=== PATIENT | male | born 1940 | race Caucasian/White ===

== ENCOUNTER 2018-05-01 22:40 | Inpatient (IN) | payer MEDICARE, OTHER ==
[2018-05-01 23:35] LABS: ADD MAN DIFF? NO
[2018-05-01 23:38] LABS: BASOPHIL # 0.1 10^3/ul (0.0-0.1); BASOPHILS % 0.7 % (0.0-2.0); EOSINOPHILS # 0.3 10^3/ul (0.0-0.5); EOSINOPHILS % 3.5 % (0.0-7.0); HEMATOCRIT 38.8 % (42.0-52.0); HEMOGLOBIN 12.3 g/dl (14.0-18.0); LYMPHOCYTES # 1.4 10^3/ul (0.8-2.9); LYMPHOCYTES % 14.7 % (15.0-51.0); MEAN CORPUSCULAR HEMOGLOBIN 28.1 pg (29.0-33.0); MEAN CORPUSCULAR HGB CONC 31.7 g/dl (32.0-37.0); MEAN CORPUSCULAR VOLUME 88.6 fl (82.0-101.0); MEAN PLATELET VOLUME 9.1 fl (7.4-10.4); MONOCYTE # 0.7 10^3/ul (0.3-0.9); MONOCYTES % 7.7 % (0.0-11.0); NEUTROPHIL # 6.9 10^3/ul (1.6-7.5); NEUTROPHILS % 71.9 % (39.0-77.0); PLATELET COUNT 558 10^3/UL (140-415); RED BLOOD COUNT 4.38 10^6/ul (4.70-6.10); RED CELL DISTRIBUTION WIDTH 17.2 % (11.5-14.5)
[2018-05-01 23:38] LABS: WHITE BLOOD COUNT 9.6 10^3/ul (4.8-10.8)
[2018-05-01 23:55] LABS: ANION GAP 5 (5-13); BLOOD UREA NITROGEN 23 mg/dl (7-20); CALCIUM 8.7 mg/dl (8.4-10.2); CARBON DIOXIDE 31 mmol/L (21-31); CHLORIDE 104 mmol/L (97-110); CREATININE 0.68 mg/dl (0.61-1.24); GLUCOSE 99 mg/dl (70-220); POTASSIUM 4.5 mmol/L (3.5-5.1); SODIUM 140 mmol/L (135-144)
[2018-05-02 00:07] LABS: B-TYPE NATRIURETIC PEPTIDE 1310 PG/ML (0-450); TROPONIN-I < 0.012 ng/ml (0.000-0.120)
[2018-05-02 00:33] LABS: PROTIME > 100.0 Sec (11.9-14.9); PT RATIO 7.8
[2018-05-02 00:38] LABS: PARTIAL THROMBOPLASTIN TIME 172.2 Sec (23.0-35.0)
[2018-05-02 00:39] LABS: INR > 10.00
[2018-05-02] MEDS: LEVALBUTEROL (NEB) 1.25 MG/0.5 ML AMP HHN (00:59)
[2018-05-02] MEDS: IPRATROPIUM (NEB) 0.5 MG/2.5 ML AMP HHN (00:59)
[2018-05-02] MEDS ORDERED: BISACODYL (EC) 5 MG TAB PO (03:00)
[2018-05-02] MEDS ORDERED: ACETAMINOPHEN 325 MG TAB PO (03:00)
[2018-05-02] MEDS ORDERED: DOCUSATE SODIUM 100 MG CAP PO (03:00)
[2018-05-02] MEDS ORDERED: ONDANSETRON 4 MG INJ IV (03:00)
[2018-05-02] MEDS ORDERED: NACL 0.9% 3 ML SYG IV (03:00)
[2018-05-02] MEDS: CEFEPIME 1GM/50 ML (PMX) 50 ML IVPB (03:02)
[2018-05-02 04:32] LABS: ADD MAN DIFF? NO
[2018-05-02 04:42] LABS: BASOPHIL # 0.1 10^3/ul (0.0-0.1); BASOPHILS % 0.8 % (0.0-2.0); EOSINOPHILS # 0.3 10^3/ul (0.0-0.5); EOSINOPHILS % 3.9 % (0.0-7.0); LYMPHOCYTES # 1.3 10^3/ul (0.8-2.9); LYMPHOCYTES % 16.6 % (15.0-51.0); MEAN CORPUSCULAR HEMOGLOBIN 28.3 pg (29.0-33.0); MEAN CORPUSCULAR HGB CONC 32.4 g/dl (32.0-37.0); MEAN CORPUSCULAR VOLUME 87.3 fl (82.0-101.0); MEAN PLATELET VOLUME 9.1 fl (7.4-10.4); MONOCYTE # 0.6 10^3/ul (0.3-0.9); MONOCYTES % 7.9 % (0.0-11.0); NEUTROPHIL # 5.5 10^3/ul (1.6-7.5); NEUTROPHILS % 69.3 % (39.0-77.0); PLATELET COUNT 520 10^3/UL (140-415); RED BLOOD COUNT 4.24 10^6/ul (4.70-6.10)
[2018-05-02] MEDS: PHYTONADIONE 10 MG/ML INJ IV (04:49)
[2018-05-02] MEDS: FUROSEMIDE 20 MG INJ IV (04:50)
[2018-05-02] MEDS: VANCOMYCIN 1 GM (PMX) 250 ML IVPB (04:50)
[2018-05-02 04:51] LABS: HEMOGLOBIN A1C 6.5 % (0-5.9)
[2018-05-02 04:53] LABS: ALANINE AMINOTRANSFERASE 7 IU/L (13-69); ALBUMIN 2.7 g/dl (3.3-4.9); ALBUMIN/GLOBULIN RATIO 0.61; ALKALINE PHOSPHATASE 78 IU/L (42-121); ANION GAP -1 (5-13); ASPARTATE AMINO TRANSFERASE 24 IU/L (15-46); BILIRUBIN,INDIRECT 0.1 mg/dl (0-1.1); BILIRUBIN,TOTAL 0.1 mg/dl (0.2-1.3); BLOOD UREA NITROGEN 20 mg/dl (7-20); CALCIUM 8.3 mg/dl (8.4-10.2); CARBON DIOXIDE 31 mmol/L (21-31); CHLORIDE 111 mmol/L (97-110); CREATININE 0.63 mg/dl (0.61-1.24); GLUCOSE 121 mg/dl (70-220); POTASSIUM 4.4 mmol/L (3.5-5.1); SODIUM 141 mmol/L (135-144); TOTAL PROTEIN 7.1 g/dl (6.1-8.1)
[2018-05-02] MEDS: METOCLOPRAMIDE 10 MG TAB PO (05:30)
[2018-05-02] MEDS ORDERED: LEVALBUTEROL (NEB) 1.25 MG/0.5 ML AMP HHN (05:30)
[2018-05-02] MEDS ORDERED: PENDING SANTYL ORDER FOR WOUND CARE XX (10:30)
[2018-05-02] MEDS: BISACODYL (EC) 5 MG TAB PO (14:07)
[2018-05-02] MEDS: METOPROLOL 50 MG TAB PO ×2 (14:07→20:59)
[2018-05-02] MEDS: FINASTERIDE 5 MG TAB PO (14:07)
[2018-05-02 16:10] LABS: PROTIME 20.1 Sec (11.9-14.9); PT RATIO 1.6
[2018-05-02 16:11] LABS: PARTIAL THROMBOPLASTIN TIME 39.1 Sec (23.0-35.0)
[2018-05-02] MEDS: FUROSEMIDE 40 MG INJ IV (17:32)
[2018-05-03] MEDS: FUROSEMIDE 40 MG INJ IV ×2 (06:32→17:59)
[2018-05-03 07:22] LABS: ADD MAN DIFF? NO
[2018-05-03 07:26] LABS: WHITE BLOOD COUNT 6.8 10^3/ul (4.8-10.8)
[2018-05-03 07:26] LABS: BASOPHIL # 0.1 10^3/ul (0.0-0.1); BASOPHILS % 0.7 % (0.0-2.0); EOSINOPHILS # 0.3 10^3/ul (0.0-0.5); EOSINOPHILS % 4.3 % (0.0-7.0); HEMATOCRIT 34.6 % (42.0-52.0); LYMPHOCYTES # 1.4 10^3/ul (0.8-2.9); LYMPHOCYTES % 19.9 % (15.0-51.0); MEAN CORPUSCULAR HEMOGLOBIN 27.8 pg (29.0-33.0); MEAN CORPUSCULAR HGB CONC 31.8 g/dl (32.0-37.0); MEAN CORPUSCULAR VOLUME 87.6 fl (82.0-101.0); MEAN PLATELET VOLUME 9.3 fl (7.4-10.4); MONOCYTE # 0.5 10^3/ul (0.3-0.9); MONOCYTES % 7.6 % (0.0-11.0); NEUTROPHIL # 4.5 10^3/ul (1.6-7.5); NEUTROPHILS % 66.6 % (39.0-77.0); PLATELET COUNT 523 10^3/UL (140-415); RED BLOOD COUNT 3.95 10^6/ul (4.70-6.10); RED CELL DISTRIBUTION WIDTH 16.9 % (11.5-14.5)
[2018-05-03 07:48] LABS: ANION GAP 5 (5-13); BLOOD UREA NITROGEN 17 mg/dl (7-20); CALCIUM 8.1 mg/dl (8.4-10.2); CARBON DIOXIDE 28 mmol/L (21-31); CHLORIDE 106 mmol/L (97-110); CREATININE 0.56 mg/dl (0.61-1.24); GLUCOSE 118 mg/dl (70-220); MAGNESIUM 2.3 mg/dl (1.7-2.5); POTASSIUM 3.9 mmol/L (3.5-5.1); SODIUM 139 mmol/L (135-144)
[2018-05-03] MEDS: BISACODYL (EC) 5 MG TAB PO (09:04)
[2018-05-03] MEDS: FINASTERIDE 5 MG TAB PO (09:05)
[2018-05-03] MEDS: METOPROLOL 50 MG TAB PO ×2 (09:05→20:32)
[2018-05-03 18:21] LABS: ADD UMIC YES; UR ASCORBIC ACID 40 mg/dL (NEGATIVE); UR BILIRUBIN (Dip) NEGATIVE (NEGATIVE); UR BLOOD (Dip) 3+ mg/dL (NEGATIVE); UR CLARITY CLEAR (CLEAR); UR COLOR YELLOW (YELLOW); UR GLUCOSE (Dip) NEGATIVE (NEGATIVE); UR KETONES (Dip) NEGATIVE (NEGATIVE); UR LEUKOCYTE ESTERASE (Dip) TRACE Leu/ul (NEGATIVE); UR MUCUS FEW /HPF (NONE SEEN); UR NITRITE (Dip) NEGATIVE (NEGATIVE); UR RBC > 182 /HPF (0-5); UR SPECIFIC GRAVITY (Dip) 1.017 (1.003-1.030); UR TOTAL PROTEIN (Dip) NEGATIVE (NEGATIVE); UR UROBILINOGEN (Dip) NEGATIVE (NEGATIVE); UR WBC 14 /HPF (0-5)
[2018-05-03] MEDS: APIXABAN 5 MG TABLET PO (20:31)
[2018-05-04] MEDS: FUROSEMIDE 40 MG INJ IV ×2 (06:29→18:47)
[2018-05-04 07:02] LABS: ANION GAP 0 (5-13); BLOOD UREA NITROGEN 17 mg/dl (7-20); CALCIUM 8.4 mg/dl (8.4-10.2); CARBON DIOXIDE 33 mmol/L (21-31); CHLORIDE 105 mmol/L (97-110); CREATININE 0.65 mg/dl (0.61-1.24); GLUCOSE 99 mg/dl (70-220); MAGNESIUM 2.2 mg/dl (1.7-2.5); POTASSIUM 3.8 mmol/L (3.5-5.1); SODIUM 138 mmol/L (135-144)
[2018-05-04] MEDS: BISACODYL (EC) 5 MG TAB PO (08:49)
[2018-05-04] MEDS: FINASTERIDE 5 MG TAB PO (08:49)
[2018-05-04] MEDS: APIXABAN 5 MG TABLET PO ×2 (08:49→20:41)
[2018-05-04] MEDS: METOPROLOL 50 MG TAB PO ×2 (08:50→20:47)
[2018-05-04] MEDS: BALSAM PERU/CASTOR OIL 60 GM TUBE TOP (08:57)
[2018-05-04] MEDS: SOD CHLORIDE 0.9% 100 ML (16:54)
[2018-05-04] MEDS: IOHEXOL 300MG/ML 150 ML BTL (16:54)
[2018-05-05] MEDS: FUROSEMIDE 40 MG INJ IV ×2 (05:29→18:38)
[2018-05-05 06:08] LABS: INR 1.46; PROTIME 17.8 Sec (11.9-14.9); PT RATIO 1.4
[2018-05-05 06:26] LABS: ANION GAP 2 (5-13); BLOOD UREA NITROGEN 15 mg/dl (7-20); CALCIUM 8.5 mg/dl (8.4-10.2); CARBON DIOXIDE 35 mmol/L (21-31); CHLORIDE 101 mmol/L (97-110); CREATININE 0.75 mg/dl (0.61-1.24); GLUCOSE 110 mg/dl (70-220); POTASSIUM 3.5 mmol/L (3.5-5.1); SODIUM 138 mmol/L (135-144)
[2018-05-05] MEDS: BISACODYL (EC) 5 MG TAB PO (09:00)
[2018-05-05] MEDS: APIXABAN 5 MG TABLET PO ×2 (09:36→20:31)
[2018-05-05] MEDS: FINASTERIDE 5 MG TAB PO (09:36)
[2018-05-05] MEDS: BALSAM PERU/CASTOR OIL 60 GM TUBE TOP (09:37)
[2018-05-05] MEDS: METOPROLOL 50 MG TAB PO ×2 (09:37→20:35)
[2018-05-05] MEDS: CEFTRIAXONE 1 GM/50 ML (PMX) 50 ML IVPB (11:23)
[2018-05-05 20:11] LABS: PSA, FREE 0.3 ng/mL
[2018-05-06] MEDS: FUROSEMIDE 40 MG INJ IV ×2 (05:59→17:52)
[2018-05-06 07:56] LABS: ADD MAN DIFF? NO
[2018-05-06 07:59] LABS: WHITE BLOOD COUNT 7.8 10^3/ul (4.8-10.8)
[2018-05-06 07:59] LABS: BASOPHIL # 0.1 10^3/ul (0.0-0.1); BASOPHILS % 0.8 % (0.0-2.0); EOSINOPHILS # 0.3 10^3/ul (0.0-0.5); EOSINOPHILS % 4.1 % (0.0-7.0); HEMATOCRIT 36.7 % (42.0-52.0); HEMOGLOBIN 11.8 g/dl (14.0-18.0); LYMPHOCYTES # 1.9 10^3/ul (0.8-2.9); LYMPHOCYTES % 24.5 % (15.0-51.0); MEAN CORPUSCULAR HEMOGLOBIN 28.4 pg (29.0-33.0); MEAN CORPUSCULAR HGB CONC 32.2 g/dl (32.0-37.0); MEAN CORPUSCULAR VOLUME 88.2 fl (82.0-101.0); MEAN PLATELET VOLUME 9.4 fl (7.4-10.4); MONOCYTE # 0.6 10^3/ul (0.3-0.9); NEUTROPHIL # 4.8 10^3/ul (1.6-7.5); NEUTROPHILS % 61.5 % (39.0-77.0); PLATELET COUNT 544 10^3/UL (140-415); RED BLOOD COUNT 4.16 10^6/ul (4.70-6.10); RED CELL DISTRIBUTION WIDTH 16.9 % (11.5-14.5)
[2018-05-06 08:41] LABS: ANION GAP 1 (5-13); BLOOD UREA NITROGEN 17 mg/dl (7-20); CALCIUM 8.5 mg/dl (8.4-10.2); CARBON DIOXIDE 35 mmol/L (21-31); CHLORIDE 102 mmol/L (97-110); GLUCOSE 97 mg/dl (70-220); POTASSIUM 3.9 mmol/L (3.5-5.1); SODIUM 138 mmol/L (135-144)
[2018-05-06] MEDS: BISACODYL (EC) 5 MG TAB PO ×2 (09:00→09:01)
[2018-05-06] MEDS: APIXABAN 5 MG TABLET PO ×2 (09:01→21:04)
[2018-05-06] MEDS: BALSAM PERU/CASTOR OIL 60 GM TUBE TOP (09:02)
[2018-05-06] MEDS: METOPROLOL 50 MG TAB PO ×2 (09:02→21:04)
[2018-05-06] MEDS: FINASTERIDE 5 MG TAB PO (09:02)
[2018-05-06] MEDS: CEFTRIAXONE 1 GM/50 ML (PMX) 50 ML IVPB (10:30)
[2018-05-07] MEDS: FUROSEMIDE 40 MG INJ IV ×2 (05:53→18:00)
[2018-05-07] MEDS: FINASTERIDE 5 MG TAB PO (08:52)
[2018-05-07] MEDS: BISACODYL (EC) 5 MG TAB PO (08:53)
[2018-05-07] MEDS: METOPROLOL 50 MG TAB PO (08:53)
[2018-05-07] MEDS: APIXABAN 5 MG TABLET PO (08:53)
[2018-05-07] MEDS: BALSAM PERU/CASTOR OIL 60 GM TUBE TOP (08:53)
[2018-05-07] MEDS: CEFTRIAXONE 1 GM/50 ML (PMX) 50 ML IVPB (11:24)
== END 2018-05-07 19:40 | DRG 813 ==
LOC: E/R 22:40 → PP2 05-02 02:46
DX: D68.32 Hemorrhagic disorder due to extrinsic circulating anticoagulants (principal); J18.9 Pneumonia, unspecified organism; I50.23 Acute on chronic systolic (congestive) heart failure; G82.20 Paraplegia, unspecified; I82.411 Acute embolism and thrombosis of right femoral vein; Z68.35 Body mass index [BMI] 35.0-35.9, adult; T45.515A Adverse effect of anticoagulants, initial encounter; R31.9 Hematuria, unspecified; I48.91 Unspecified atrial fibrillation; E11.9 Type 2 diabetes mellitus without complications; N40.0 Benign prostatic hyperplasia without lower urinary tract symptoms; I89.0 Lymphedema, not elsewhere classified; I11.0 Hypertensive heart disease with heart failure; Z66 Do not resuscitate; E66.01 Morbid (severe) obesity due to excess calories
CPT/HCPCS: 36415; 71045; 74177; 80048; 80053; 81001; 83036; 83735; 83880; 84153; 84154; 84443; 84484; 85025; 85610; 85730; 87040; 87081; 87086; 93005; 93306; 93970; 94664; 99285-25